=== PATIENT | female | born 1990 ===

== ENCOUNTER 2018-01-12 14:03 | Emergency (ER) | payer OTHER ==
--- NOTE | 2018-01-12 14:48 | ED PDOC ---
HPI: General Adult Time Seen by Provider: 01/12/18 14:41 Chief Complaint (Nursing): ENT Problem Chief Complaint (Provider): Right Ear Pain History Per: Patient, Family (family member at bedside translating for patient in cameroonian) Additional Complaint(s): Rossana is a 27 y/o female who presents to the ED c/o right ear pain since Wednesday with associated sore throat and nasal congestion. Patient denies hearing loss, fever or chills. She also has slight dry cough. PMD: Scott Weston MD Past Medical History Reviewed: Historical Data, Nursing Documentation, Vital Signs Vital Signs: Last Vital Signs Temp 100.2 F H 01/12/18 14:35 Pulse 107 H 01/12/18 14:35 Resp 18 01/12/18 14:35 BP 138/90 01/12/18 14:35 Pulse Ox 99 01/12/18 14:56 - Medical History PMH: Asthma - Surgical History Surgical History: No Surg Hx - Family History Family History: States: No Known Family Hx - Living Arrangements Living Arrangements: With Family - Social History Current smoker - smoking cessation education provided: No Alcohol: None Drugs: Denies - Home Medications Home Medications: Ambulatory Orders Medication Instructions Recorded Amoxicillin/Clavulanate [Augmentin 1 tab PO BID #14 tab 01/12/18 875 MG-125 MG] Ibuprofen [Motrin] 600 mg PO Q6 PRN #15 tab 01/12/18 - Allergies Allergies/Adverse Reactions: Allergies Allergy/AdvReac Type Severity Reaction Status Date / Time No Known Allergies Allergy Verified 01/12/18 14:35 Review of Systems ROS Statement: Except As Marked, All Systems Reviewed And Found Negative Constitutional: Negative for: Fever ENT: Positive for: Ear Pain (right), Nose Congestion, Throat Pain Respiratory: Positive for: Cough (slight, dry cough) Gastrointestinal: Negative for: Vomiting Neurological: Negative for: Headache Physical Exam - Reviewed Nursing Documentation Reviewed: Yes Vital Signs Reviewed: Yes - Physical Exam Appears: Positive for: Well, Non-toxic, No Acute Distress Head Exam: Positive for: ATRAUMATIC Skin: Positive for: Normal Color, Warm. Negative for: Rash ENT: Positive for: TM Is/Are (right: bulging with erythema and obscured landmarks, left is wnl), Nasal Congestion, Pharyngeal Erythema Neck: Positive for: Normal, Painless ROM Cardiovascular/Chest: Positive for: Regular Rate, Rhythm Respiratory: Positive for: Normal Breath Sounds Neurologic/Psych: Positive for: Alert, Oriented. Negative for: Motor/Sensory Deficits - ECG O2 Sat by Pulse Oximetry: 99 (RA) Pulse Ox Interpretation: Normal Medical Decision Making Medical Decision Making: Time: 14:45 Initial Impression: 27 y/o female with pharyngitis and otitis media Initial Plan: --Patient will be discharged with prescriptions for augmentin and motrin. PMD follow up for persistent symptoms. Repeat vitals improved prior to discharge. Scribe Attestation: Documented by Erick Upton, acting as a scribe for Barbara Aguirre PA-C Provider Scribe Attestation: All medical record entries made by the Scribe were at my direction and personally dictated by me. I have reviewed the chart and agree that the record accurately reflects my personal performance of the history, physical exam, medical decision making, and the department course for this patient. I have also personally directed, reviewed, and agree with the discharge instructions and disposition. Disposition - Clinical Impression Clinical Impression: Otitis media, Pharyngitis - Patient ED Disposition Is Patient to be Admitted: No Counseled Patient/Family Regarding: Diagnosis, Need For Followup, Rx Given - Disposition Referrals: Scott Weston MD [Medical Doctor] - Disposition: Routine/Home Disposition Time: 15:11 Condition: STABLE Additional Instructions: Take rx meds as directed. Follow up with primary care doctor for any persistent symptoms. Prescriptions: Amoxicillin/Clavulanate [Augmentin 875 MG-125 MG] 1 tab PO BID #14 tab Ibuprofen [Motrin] 600 mg PO Q6 PRN #15 tab PRN Reason: Pain, Moderate (4-7) Instructions: Ear Infections (Otitis Media), Sore Throat in Adults Forms: [employer] (Kinyarwanda) Print Language: SRI LANKAN
[2018-01-12 15:41] VITALS: BP 129/79; RESP 20; TEMP 99.6; O2SAT 99
[2018-01-12 15:45] VITALS: PULSE 94
== END 2018-01-12 15:45 | disposition home or self-care (01) ==
LOC: H.ER 14:03
DX: H66.91 Otitis media, unspecified, right ear (principal); J02.9 Acute pharyngitis, unspecified; J45.909 Unspecified asthma, uncomplicated